=== PATIENT | male | born 1985 | race Caucasian/White ===

== ENCOUNTER 2021-05-25 12:37 | Emergency (ER) | payer OTHER ==
[~2021-05-25] VITALS: Ht 172 cm; Wt 81.0 kg
--- NOTE | 2021-05-25 13:04 | ED Psychosocial ---
General Chief Complaint: Substance Abuse Stated Complaint: ALCOHOL INTOXICATION Source: patient, EMS History of Present Illness Date Seen by Provider: May 25, 2021 Time Seen by Provider: 12:38 Initial Comments 35-year-old male presents with EMS due to alcoholism. He states he has been through multiple rehabs and detox programs. He also used methamphetamines a few days ago. He is living with his sister currently. He states that he called EMS because he wanted to get help and be detoxed so that he could feel better and do better in life. He denies being suicidal or homicidal. He states he is 100% affiliated with the [employer]. He also has a history of pancreatitis from his alcoholism. He states he drinks over a gallon of vodka in the last day. At times he is tearful and slurring his words. Allergies and Home Medications Allergies Coded Allergies: No Known Drug Allergies (Unverified , 05/25/21) Patient Home Medication List Home Medication List Reviewed: Yes Review of Systems Constitutional: No chills, No fever EENTM: no symptoms reported Respiratory: no symptoms reported Cardiovascular: no symptoms reported Gastrointestinal: abdominal pain (epigastric pain); No nausea, No vomiting Genitourinary: no symptoms reported Musculoskeletal: no symptoms reported Skin: no symptoms reported Psychiatric/Neurological: Anxiety, Emotional Problems Past Lpeesqy-Ajdlyz-Wqnsvl Hx Patient Social History Substance use?: Yes Substance type: Methamphetamine Substance frequency: Couple times a week Alcohol Use?: Yes Alcohol type: Hard Liquor (Vodka) Alcohol Frequency: Daily Past Medical History Cardiac: Yes Hypertension Physical Exam Vital Signs - First Documented 05/25/21 13:03 Temp 36.8 Pulse 84 Resp 14 B/P (MAP) 125/96 (106) Pulse Ox 96 O2 Delivery Room Air Capillary Refill : Height, Weight, BMI Height: '" Weight: lbs. oz. kg; BMI Method: General Appearance: other (disheveled appearance and behavior fluctuates from cooperative and tearful to belligerent and demanding) HEENT: PERRL/EOMI Neck: non-tender, full range of motion, supple, normal inspection Respiratory: chest non-tender, lungs clear, normal breath sounds, no respiratory distress, no accessory muscle use Cardiovascular: normal peripheral pulses, regular rate, rhythm Gastrointestinal: normal bowel sounds, soft, no pulsatile mass; No distended, No guarding, No rebound; tenderness (mild epigastric tenderness) Extremities: normal range of motion, non-tender, normal capillary refill Neurologic/Psychiatric: credit investigator II-XII nml as tested, alert, oriented x 3 Appearance/Memory: disheveled Behavior/Eye Contact: compulsive Skin: warm/dry, rash (papules on lips and sores that look like he has been picking at his skin on extremities) Progress/Results/Core Measures Results/Orders Lab Results Laboratory Tests Test 05/25/21 12:45 05/25/21 12:55 05/25/21 13:20 Range/Units SARS-CoV-2 RNA (RT-PCR) Not Detected Not Detecte White Blood Count 3.7 L 4.3-11.0 10^3/uL Red Blood Count 4.40 4.30-5.52 10^6/uL Hemoglobin 12.5 L 13.3-17.7 g/dL Hematocrit 38 L 40-54 % Mean Corpuscular Volume 86 80-99 fL Mean Corpuscular Hemoglobin 28 25-34 pg Mean Corpuscular Hemoglobin Concent 33 32-36 g/dL Red Cell Distribution Width 13.0 10.0-14.5 % Platelet Count 316 130-400 10^3/uL Mean Platelet Volume 10.0 9.0-12.2 fL Immature Granulocyte % (Auto) 0 % Neutrophils (%) (Auto) 40 L 42-75 % Lymphocytes (%) (Auto) 50 H 12-44 % Monocytes (%) (Auto) 5 0-12 % Eosinophils (%) (Auto) 4 0-10 % Basophils (%) (Auto) 1 0-10 % Neutrophils # (Auto) 1.5 L 1.8-7.8 X 10^3 Lymphocytes # (Auto) 1.9 1.0-4.0 X 10^3 Monocytes # (Auto) 0.2 0.0-1.0 X 10^3 Eosinophils # (Auto) 0.2 0.0-0.3 10^3/uL Basophils # (Auto) 0.0 0.0-0.1 10^3/uL Immature Granulocyte # (Auto) 0.0 0.0-0.1 10^3/uL Sodium Level 145 135-145 MMOL/L Potassium Level 3.7 3.6-5.0 MMOL/L Chloride Level 105 98-107 MMOL/L Carbon Dioxide Level 27 21-32 MMOL/L Anion Gap 13 5-14 MMOL/L Blood Urea Nitrogen 4 L 7-18 MG/DL Creatinine 0.80 0.60-1.30 MG/DL Estimat Glomerular Filtration Rate 111 BUN/Creatinine Ratio 5 Glucose Level 102 70-105 MG/DL Calcium Level 8.0 L 8.5-10.1 MG/DL Corrected Calcium 8.1 L 8.5-10.1 MG/DL Total Bilirubin < 0.2 0.1-1.0 MG/DL Aspartate Amino Transf (AST/SGOT) 18 5-34 U/L Alanine Aminotransferase (ALT/SGPT) 12 0-55 U/L Alkaline Phosphatase 83 40-136 U/L Total Protein 6.6 6.4-8.2 GM/DL Albumin 3.9 3.2-4.5 GM/DL Lipase 15 8-78 U/L Salicylates Level < 0.3 L 5.0-20.0 MG/DL Acetaminophen Level < 10 L 10-30 UG/ML Serum Alcohol 312 *H <10 MG/DL Urine Color YELLOW Urine Clarity CLEAR Urine pH 7.0 5-9 Urine Specific [place] <=1.005 1.016-1.022 Urine Protein NEGATIVE NEGATIVE Urine Glucose (UA) NEGATIVE NEGATIVE Urine Ketones NEGATIVE NEGATIVE Urine Nitrite NEGATIVE NEGATIVE Urine Bilirubin NEGATIVE NEGATIVE Urine Urobilinogen 0.2 < = 1.0 MG/DL Urine Leukocyte Esterase NEGATIVE NEGATIVE Urine RBC (Auto) NEGATIVE NEGATIVE Urine RBC RARE /HPF Urine WBC NONE /HPF Urine Squamous Epithelial Cells RARE /HPF Urine Crystals NONE /LPF Urine Bacteria NEGATIVE /HPF Urine Casts NONE /LPF Urine Mucus NEGATIVE /LPF Urine Culture Indicated NO Urine Opiates Screen NEGATIVE NEGATIVE Urine Oxycodone Screen NEGATIVE NEGATIVE Urine Methadone Screen NEGATIVE NEGATIVE Urine Propoxyphene Screen NEGATIVE NEGATIVE Urine Barbiturates Screen NEGATIVE NEGATIVE Ur Tricyclic Antidepressants Screen NEGATIVE NEGATIVE Urine Phencyclidine Screen NEGATIVE NEGATIVE Urine Amphetamines Screen NEGATIVE NEGATIVE Urine Methamphetamines Screen NEGATIVE NEGATIVE Urine Benzodiazepines Screen NEGATIVE NEGATIVE Urine Cocaine Screen NEGATIVE NEGATIVE Urine Cannabinoids Screen NEGATIVE NEGATIVE My Orders Orders - ASHLYN FRANKLIN MD Covid 19 Inhouse Test (05/25/21 12:47) Ua Culture If Indicated (05/25/21 13:02) Cbc With Automated Diff (05/25/21 13:02) Comprehensive Metabolic Panel (05/25/21 13:02) Alcohol (05/25/21 13:02) Drug Screen Stat (Urine) (05/25/21 13:02) Acetaminophen (05/25/21 13:02) Salicylate (05/25/21 13:02) Ekg Tracing (05/25/21 13:02) Ed Iv/Invasive Line Start (05/25/21 13:02) Monitor-Rhythm Ecg Trace Only (05/25/21 13:02) Bh Status Checks/Observation Q15M (05/25/21 13:02) Lipase (05/25/21 13:30) Pantoprazole Injection (Protonix Injecti (05/25/21 13:31) Ns Iv 1000 Ml (Sodium Chloride 0.9%) (05/25/21 13:31) Lorazepam Injection (Ativan Injection) (05/25/21 13:52) Lorazepam Injection (Ativan Injection) (05/25/21 16:21) Ns Iv 1000 Ml (Sodium Chloride 0.9%) (05/25/21 16:38) Ns Iv 1000 Ml (Sodium Chloride 0.9%) (05/25/21 16:45) Vital Signs/I&O 05/25/21 13:03 Temp 36.8 Pulse 84 Resp 14 B/P (MAP) 125/96 (106) Pulse Ox 96 O2 Delivery Room Air Progress Progress Note #1: Progress Note Advised pt that as an Emergency Department I could check labs and urine and test to see what could be done for him and if he could be transferred to any Detox programs but we do not have any of those services here. He reports taking his last drink of Vodka as the ambulance was pulling up to get him. With [facility] can check with [facility] to see if they have any services available for him once tests are back. In meantime will give fluids and medicine for stomach irritation. Progress Note #2: Progress Note Alcohol level came back as 312. No pancreatitis or elevation of LFTs. UA diluted but no acute abnormality. UDS negative for any drugs of abuse which is consistent with patient saying he last used methamphetamines a few days ago. despite 1 mg of Ativan pt reports he feels jittery and like he is beginning to go through DTs and that he usually gets 10 mg of Ativan at a time when he is in the ED. Advised that is not a dose we will be giving him here and will check about [facility] to see if they have a bed for admit and treatment or if he needs something more locally. Progress Note #3: Progress Note 1425 I spoke with Nara from [facility] inpatient program and she went through criteria that pt would need to be sober already, approved by committee, then could get a bed. However, they are about 3 weeks out for open beds currently. Pt notified of this. Still wanting to go to [place] but advised that we do not have resources to get him to [place]. 1445 d/w Nenita RN, transfer nurse at [facility] and she looked him up in the [place] system and verified he is a and that his address shows he is from [place]. She requested his chart be faxed for review and gave number to send information. Chart faxed to [facility] at [phone] per nursing. 1612 call placed back to [facility] and spoke with DELANEY Gutierres, again at the [facility] for the [facility]. She advised that the doctor was reviewing the chart and she would call me back once she had a response from the provider. Progress Note #4: Time: 16:[address] Levi Adames called from [facility] and accepted pt for transfer. Patient had a mild drop in his blood pressure 85-100 systolic so given an additional Liter of NS for hydration and BP. Updated pt about transfer acceptance to [facility] and he was asking for more Ativan because he felt that he had really high blood pressure and heart rate and like he was going "in and out of DT's" and needed medicine right now. I personally readjusted his bp cuff 4 times and best I got was 103 systolic. So I told him he would need additional fluid and improvement in his pressure before I could authorize Ativan. He argued that his pressure was never below 120 and he did not believe the pressure and demanded Ativan. I Advised him he needed his bp to come up more and allow fluid to go in before we would give him any more so I did not drop his pressure too much Initial ECG Impression Date: May 25, 2021 Initial ECG Impression Time: 13:20 Initial ECG Rate: 69 Initial ECG Rhythm: Normal Sinus Initial ECG Comparisson: No Previous ECG Available Comment Normal sinus rhythm with a heart rate of 69 bpm. MI interval 131 ms. Incomplete right bundle branch block. Early repolarization changes. QT interval 427 ms with a QTc interval 558 ms. No indication of STEMI. No prior tracing available for comparison Departure Impression Primary Impression: Acute alcoholic intoxication Qualified Codes: F10.920 - Alcohol use, unspecified with intoxication, uncomplicated Disposition: 02 XFER SHT-TRM HOSP Condition: Stable Transfer Transfer Reason: Patient preference ('s Administration patient) Time Spoke to Accepting Phy: 16:41 Transfer Progress Notes D/w Dr. Levi Adames and he accepted pt for transfer to ICU or stepdown bed at [facility]. Will have transfer nurse call back for nurses to connect for report. Transfer Facility: [facility] Method of Transfer: EMS Departure-Patient Inst. Patient Instructions: ALCOHOL AND SUBSTANCE ABUSE ASHLYN FRANKLIN MD May 25, 2021 13:04
[2021-05-25 13:23] LABS: HEMATOCRIT 38 % (40-54); HEMOGLOBIN 12.5 g/dL (13.3-17.7); MEAN CORPUSCULAR HEMOGLOBIN 28 pg (25-34); MEAN CORPUSCULAR HGB CONC 33 g/dL (32-36); MEAN CORPUSCULAR VOLUME 86 fL (80-99); PLATELET COUNT 316 10^3/uL (130-400); WHITE BLOOD COUNT 3.7 10^3/uL (4.3-11.0)
[2021-05-25 13:24] LABS: BASOPHILS % (AUTO) 1 % (0-10); EOSINOPHILS # (AUTO) 0.2 10^3/uL (0.0-0.3); EOSINOPHILS % (AUTO) 4 % (0-10); LYMPHOCYTES # (AUTO) 1.9 X 10^3 (1.0-4.0); LYMPHOCYTES % (AUTO) 50 % (12-44); MONOCYTES # (AUTO) 0.2 X 10^3 (0.0-1.0); MONOCYTES % (AUTO) 5 % (0-12); NEUTROPHILS # (AUTO) 1.5 X 10^3 (1.8-7.8); NEUTROPHILS % (AUTO) 40 % (42-75)
[2021-05-25 13:31] LABS: BILIRUBIN,URINE NEGATIVE (NEGATIVE); CLARITY,URINE CLEAR; COLOR,URINE YELLOW; GLUCOSE, URINE (UA) NEGATIVE (NEGATIVE); KETONES,URINE NEGATIVE (NEGATIVE); LEUKOCYTE ESTERASE ,URINE NEGATIVE (NEGATIVE); NITRITE,URINE NEGATIVE (NEGATIVE); PROTEIN,URINE NEGATIVE (NEGATIVE)
[2021-05-25] MEDS ORDERED: PANTOPRAZOLE 40 MG (PROTONIX) VIAL IV STA (13:31)
[2021-05-25] MEDS ORDERED: NS IV 1000 ML 1,000 ML IV STA (13:31)
[2021-05-25 13:33] LABS: CARBON DIOXIDE 27 MMOL/L (21-32); CHLORIDE 105 MMOL/L (98-107); POTASSIUM 3.7 MMOL/L (3.6-5.0); SODIUM 145 MMOL/L (135-145)
[2021-05-25 13:37] LABS: ALANINE AMINOTRANSFERASE 12 U/L (0-55); ALBUMIN 3.9 GM/DL (3.2-4.5); ALKALINE PHOSPHATASE 83 U/L (40-136); BILIRUBIN,TOTAL < 0.2 MG/DL (0.1-1.0); BUN/CREATININE RATIO 5; GFR ESTIMATED 111; GLUCOSE 102 MG/DL (70-105); TOTAL PROTEIN 6.6 GM/DL (6.4-8.2)
[2021-05-25 13:38] LABS: ACETAMINOPHEN < 10 UG/ML (10-30); SALICYLATE < 0.3 MG/DL (5.0-20.0)
[2021-05-25 13:51] LABS: BACTERIA,URINE NEGATIVE /HPF; RBC,URINE RARE /HPF; SQUAMOUS EPITHELIAL CELL,UR RARE /HPF
[2021-05-25] MEDS ORDERED: LORazepam INJ 2 MG/ML (ATIVAN) VIAL IVP STA ×2 (13:52→16:21)
[2021-05-25 14:29] LABS: AMPHETAMINE SCREEN, URINE NEGATIVE (NEGATIVE); BENZODIAZEPINES SCREEN URINE NEGATIVE (NEGATIVE); COCAINE SCREEN URINE NEGATIVE (NEGATIVE); METHAMPHETAMINE SCREEN URINE S NEGATIVE (NEGATIVE)
[2021-05-25 14:30] LABS: BARBITURATE SCREEN URINE NEGATIVE (NEGATIVE); CANNABINOID SCREEN, URINE NEGATIVE (NEGATIVE); METHADONE STAT NEGATIVE (NEGATIVE); OPIATE SCREEN URINE NEGATIVE (NEGATIVE); OXYCODONE STAT NEGATIVE (NEGATIVE); PROPOXYPHENE STAT NEGATIVE (NEGATIVE); TRICYCLIC ANTIDEPRESSANTS SCRE NEGATIVE (NEGATIVE)
[2021-05-25] MEDS ORDERED: NS IV 1000 ML 1,000 ML ONE (16:38)
[2021-05-25] MEDS ORDERED: NS IV 1000 ML 1,000 ML IV SCH (16:45)
[2021-05-25 17:30] VITALS: BP 101/62
== END 2021-05-25 17:30 | disposition short-term general hospital (02) ==
LOC: ER FS 12:38
DX: F10.129 Alcohol abuse with intoxication, unspecified (principal); I10 Essential (primary) hypertension; Z20.822 Contact with and (suspected) exposure to COVID-19
CPT/HCPCS: 36415; 80053; 80306; 80320; 80329; 81000; 83690; 85025; 87636; 93005; 93041

== ENCOUNTER 2021-07-21 10:44 | Emergency (ER) | payer OTHER ==
[~2021-07-21] VITALS: Ht 175 cm; Wt 90.0 kg
[2021-07-21] MEDS ORDERED: D5 NS 1000 ML IV SOLUTION 1,000 ML IV ONE (11:00)
[2021-07-21] MEDS ORDERED: DIAZEPAM 5 MG (VALIUM) TABLET PO ONE ×3 (11:00→12:30)
--- NOTE | 2021-07-21 11:04 | ED Psychosocial ---
General Stated Complaint: ALCOHOL WITHDRAWAL Source: EMS Exam Limitations: no limitations History of Present Illness Date Seen by Provider: Jul 21, 2021 Time Seen by Provider: 10:49 Initial Comments 35-year-old male with past medical history of alcohol and methamphetamine use disorder coming in wanting to detox. He says he drank roughly 2 gallons of vodka yesterday and stopped in the early hours of the morning this morning. He says he is worried he is going into DTs. He says in the past he has had seizures. He was seen in our emergency department several weeks ago and was transferred to the [facility] in [place]. He says he left AMA because he was not getting enough medications. He is demanding IV benzodiazepines immediately upon arrival here. EMS reports he called them and told them he ran out of alcohol and that is why he called 911. He is denying any chest pain, shortness of breath, abdominal pain, nausea, vomiting, diarrhea, fever, chills, weakness, numbness, or any other concerns. He says he is hallucinating, but is unable to tell me what he is hallucinating, just that he is seeing things. Allergies and Home Medications Allergies Coded Allergies: No Known Drug Allergies (Unverified , 05/25/21) Patient Home Medication List Home Medication List Reviewed: Yes Chlordiazepoxide HCl (Chlordiazepoxide HCl) 25 Mg Capsule, 50 MG PO Q8H Prescribed by: MELINDA DURAN on 07/21/21 1325 Chlordiazepoxide HCl (Chlordiazepoxide HCl) 25 Mg Capsule, 25 MG PO Q8H Prescribed by: MELINDA DURAN on 07/21/21 1325 Review of Systems Constitutional: No chills, No fever EENTM: No blurred vision Respiratory: No cough, No short of breath Cardiovascular: No chest pain Gastrointestinal: No abdominal pain Genitourinary: No discharge Musculoskeletal: No back pain Skin: no symptoms reported Psychiatric/Neurological: Tremors All Other Systems Reviewed Negative Unless Noted: Yes Past Xzcijbf-Zuecbb-Svqdsh Hx Patient Social History Substance use?: Yes Substance type: Methamphetamine Alcohol Use?: Yes Immunizations Up To Date First/Initial COVID19 Vaccinat: NA Past Medical History Surgeries: No Cardiac: Yes Hypertension Physical Exam Vital Signs - First Documented 07/21/21 11:47 Temp 36.5 Pulse 118 Resp 20 B/P (MAP) 157/100 (119) Pulse Ox 95 Capillary Refill : Height, Weight, BMI Height: '" Weight: lbs. oz. kg; 27.00 BMI Method: General Appearance: WD/WN, no apparent distress HEENT: PERRL/EOMI, normal ENT inspection, pharynx normal Neck: non-tender, full range of motion, supple, normal inspection Respiratory: chest non-tender, lungs clear, normal breath sounds, no respiratory distress, no accessory muscle use Cardiovascular: regular rate, rhythm, no edema, no murmur, tachycardia Gastrointestinal: normal bowel sounds, non tender, soft; No distended, No guarding, No rebound Extremities: normal range of motion, non-tender, normal inspection, no pedal edema, no calf tenderness, normal capillary refill Neurologic/Psychiatric: no motor/sensory deficits, alert, normal mood/affect Behavior/Eye Contact: cooperative Thoughts/Hallucinations: no apparent hallucination; No auditory hallucinations Skin: normal color, warm/dry Lymphatic: no adenopathy Progress/Results/Core Measures Results/Orders Lab Results Laboratory Tests Test 07/21/21 11:04 07/21/21 11:30 Range/Units White Blood Count 7.1 4.3-11.0 10^3/uL Red Blood Count 4.89 4.30-5.52 10^6/uL Hemoglobin 13.9 13.3-17.7 g/dL Hematocrit 42 40-54 % Mean Corpuscular Volume 86 80-99 fL Mean Corpuscular Hemoglobin 28 25-34 pg Mean Corpuscular Hemoglobin Concent 33 32-36 g/dL Red Cell Distribution Width 14.4 10.0-14.5 % Platelet Count 206 130-400 10^3/uL Mean Platelet Volume 9.7 9.0-12.2 fL Immature Granulocyte % (Auto) 2 % Neutrophils (%) (Auto) 68 42-75 % Lymphocytes (%) (Auto) 23 12-44 % Monocytes (%) (Auto) 5 0-12 % Eosinophils (%) (Auto) 1 0-10 % Basophils (%) (Auto) 1 0-10 % Neutrophils # (Auto) 4.8 1.8-7.8 X 10^3 Lymphocytes # (Auto) 1.6 1.0-4.0 X 10^3 Monocytes # (Auto) 0.3 0.0-1.0 X 10^3 Eosinophils # (Auto) 0.1 0.0-0.3 10^3/uL Basophils # (Auto) 0.1 0.0-0.1 10^3/uL Immature Granulocyte # (Auto) 0.2 H 0.0-0.1 10^3/uL Sodium Level 140 135-145 MMOL/L Potassium Level 3.5 L 3.6-5.0 MMOL/L Chloride Level 97 L 98-107 MMOL/L Carbon Dioxide Level 17 L 21-32 MMOL/L Anion Gap 26 H 5-14 MMOL/L Blood Urea Nitrogen 18 7-18 MG/DL Creatinine 0.86 0.60-1.30 MG/DL Estimat Glomerular Filtration Rate 102 BUN/Creatinine Ratio 21 Glucose Level 76 70-105 MG/DL Calcium Level 8.8 8.5-10.1 MG/DL Total Bilirubin 0.3 0.1-1.0 MG/DL Direct Bilirubin < 0.2 0.0-0.3 MG/DL Indirect Bilirubin 0.1 MG/DL Aspartate Amino Transf (AST/SGOT) 39 H 5-34 U/L Alanine Aminotransferase (ALT/SGPT) 28 0-55 U/L Alkaline Phosphatase 106 40-136 U/L Total Protein 7.3 6.4-8.2 GM/DL Albumin 4.5 3.2-4.5 GM/DL Salicylates Level < 0.3 L 5.0-20.0 MG/DL Acetaminophen Level < 10 L 10-30 UG/ML Serum Alcohol 253 H <10 MG/DL My Orders Orders - MELINDA DURAN MD Ed Iv/Invasive Line Start (07/21/21 10:52) Basic Metabolic Panel (07/21/21 10:52) Diazepam Tablet (Valium Tablet) (07/21/21 11:00) Drug Screen Stat (Urine) (07/21/21 10:52) Ua Culture If Indicated (07/21/21 10:58) Cbc With Automated Diff (07/21/21 10:58) Alcohol (07/21/21 10:58) Acetaminophen (07/21/21 10:58) Salicylate (07/21/21 10:58) Haloperidol Injection (Haldol Injectio (07/21/21 11:15) Diazepam Tablet (Valium Tablet) (07/21/21 11:30) D5 Lr Iv Solution (Dextrose 5%/Lactated (07/21/21 11:45) Diazepam Tablet (Valium Tablet) (07/21/21 12:30) Liver Panel (07/21/21 12:22) Medications Given in ED Current Medications Medications Dose Ordered Sig/Geovany Route Start Time Stop Time Status Last Admin Dose Admin Diazepam 10 mg ONCE ONCE PO 07/21/21 11:00 07/21/21 11:01 DC 07/21/21 12:39 10 MG Diazepam 20 mg ONCE ONCE PO 07/21/21 11:30 07/21/21 11:31 DC 07/21/21 11:30 20 MG Diazepam 20 mg ONCE ONCE PO 07/21/21 12:30 07/21/21 12:31 DC 07/21/21 12:32 20 MG Haloperidol Lactate 5 mg ONCE ONCE IV 07/21/21 11:15 07/21/21 11:16 DC 07/21/21 13:17 5 MG Vital Signs/I&O 07/21/21 07/21/21 11:47 13:54 Temp 36.5 Pulse 118 117 Resp 20 20 B/P (MAP) 157/100 (119) 135/91 Pulse Ox 95 96 Progress Progress Note : Progress Note 35-year-old male with above history coming in because he ran out of alcohol. ABCs were intact and vitals were stable on presentation although he is mildly tachycardic. I do not see any tremor on exam, he is communicating effectively and does not have any apparent hallucinations. Additionally, he stopped drinking just several hours ago and he it is too soon to have any significant DTs or hallucinations. The patient became very aggressive with the staff and me and we were concerned for safety, and we did have to call the police. After verbal de-escalation, the patient did calm down. I did a CIWA score personally and he scored a 9 mostly for his agitation and anxiety. He was given a dose of 10 mg of oral diazepam. At that point he told me he swallows "whole Xanax bars" and he did not feel this would do anything for him. On repeat assessment he was still anxious so given 20 mg of oral diazepam. At that point the patient was asking to be transferred to the [facility] for detox. I called and left a message at 12pm. [facility] and spoke [facility]ita who says they are unable to accept the transfer due to bed availability. Discussed this with the patient and he became verbally aggressive and threatening to staff again. I discussed with him that this is not acceptable behavior. Despite me explaining he received 50mg total of oral diazepam he was demanding 10mg of IV ativan "right now". I discussed that when he is calm, his heart rate is normal, blood pressure is normal, and has no tremor. I am not seeing any objective signs of withdrawal. He is appropriate for outpatient management. I wrote a librium taper script for the patient as he is saying he is interested in stopping drinking. He was discharged in stable condition with strict return precautions. At the time of leaving, he was completely alert and orient, walking completely normal, and was able to discuss with me the care plan which was to take the librium taper. I gave him a goodRx card which he said would help. Clinically he was sober at the time of leaving the ER. At the time of departure, he was help seeking, and had no thoughts to harm himself or anybody else. He had no apparent hallucinations. Departure Impression Primary Impression: Alcohol use disorder Disposition: 01 HOME, SELF-CARE Condition: Stable Departure-Patient Inst. Decision time for Depature: 13:30 Referrals: NO,LOCAL PHYSICIAN (PCP/Family) Primary Care Physician Patient Instructions: Alcohol Use Disorder (DC) Add. Discharge Instructions: We sent a taper of benzos to the [facility] in [place]. Please take 50mg every 8 hours for 2 days and then 25mg every 8 hours for 2 days. [facility] call the [facility] to ask for more outpatient options. Scripts Chlordiazepoxide HCl (Chlordiazepoxide HCl) 25 Mg Capsule 25 MG PO Q8H for 2 Days, #6 CAP Prov: MELINDA DURAN MD 07/21/21 Chlordiazepoxide HCl (Chlordiazepoxide HCl) 25 Mg Capsule 50 MG PO Q8H for 2 Days, #12 CAP Prov: MELINDA DURAN MD 07/21/21 MELINDA UDRAN MD Jul 21, 2021 11:04
[2021-07-21 11:11] LABS: BASOPHILS % (AUTO) 1 % (0-10); EOSINOPHILS % (AUTO) 1 % (0-10); HEMATOCRIT 42 % (40-54); HEMOGLOBIN 13.9 g/dL (13.3-17.7); LYMPHOCYTES % (AUTO) 23 % (12-44); MEAN CORPUSCULAR HEMOGLOBIN 28 pg (25-34); MEAN CORPUSCULAR HGB CONC 33 g/dL (32-36); MEAN CORPUSCULAR VOLUME 86 fL (80-99); MEAN PLATELET VOLUME 9.7 fL (9.0-12.2); MONOCYTES % (AUTO) 5 % (0-12); NEUTROPHILS % (AUTO) 68 % (42-75); PLATELET COUNT 206 10^3/uL (130-400); WHITE BLOOD COUNT 7.1 10^3/uL (4.3-11.0)
[2021-07-21 11:12] LABS: BASOPHILS # (AUTO) 0.1 10^3/uL (0.0-0.1); EOSINOPHILS # (AUTO) 0.1 10^3/uL (0.0-0.3); LYMPHOCYTES # (AUTO) 1.6 X 10^3 (1.0-4.0); MONOCYTES # (AUTO) 0.3 X 10^3 (0.0-1.0); NEUTROPHILS # (AUTO) 4.8 X 10^3 (1.8-7.8)
[2021-07-21] MEDS ORDERED: HALOPERIDOL 5 MG/ML (HALDOL) VIAL IV ONE (11:15)
[2021-07-21] MEDS ORDERED: D5 LR IV SOLUTION 1,000 ML IV SCH (11:45)
[2021-07-21 12:13] LABS: BUN/CREATININE RATIO 21; CALCIUM 8.8 MG/DL (8.5-10.1); CARBON DIOXIDE 17 MMOL/L (21-32); CHLORIDE 97 MMOL/L (98-107); CREATININE SERUM 0.86 MG/DL (0.60-1.30); GFR ESTIMATED 102; GLUCOSE 76 MG/DL (70-105); POTASSIUM 3.5 MMOL/L (3.6-5.0); SALICYLATE < 0.3 MG/DL (5.0-20.0); SODIUM 140 MMOL/L (135-145)
[2021-07-21 12:14] LABS: ACETAMINOPHEN < 10 UG/ML (10-30)
[2021-07-21 12:52] LABS: BILIRUBIN,INDIRECT 0.1 MG/DL; BILIRUBIN,TOTAL 0.3 MG/DL (0.1-1.0)
[2021-07-21 12:53] LABS: ALANINE AMINOTRANSFERASE 28 U/L (0-55); ALBUMIN 4.5 GM/DL (3.2-4.5); ALKALINE PHOSPHATASE 106 U/L (40-136); BILIRUBIN,DIRECT < 0.2 MG/DL (0.0-0.3); TOTAL PROTEIN 7.3 GM/DL (6.4-8.2)
[2021-07-21] MEDS ORDERED: CHLO25CA10 PO (13:24)
[2021-07-21 13:54] VITALS: BP 135/91
== END 2021-07-21 13:35 | disposition home or self-care (01) ==
LOC: EDUNIT# 10:44 → ER FS 10:45
DX: F10.99 Alcohol use, unspecified with unspecified alcohol-induced disorder (principal); I10 Essential (primary) hypertension
CPT/HCPCS: 36415; 80048; 80076; 80320; 80329; 85025